=== PATIENT | male | born 1985 | race Caucasian/White ===

== ENCOUNTER 2020-02-23 09:19 | Outpatient (CLI) | payer OTHER, SELFPAY ==
[2020-02-24 18:04] LABS: SARS-CoV-2 RNA PCR Negative
== END 2020-02-23 09:20 | disposition home or self-care (01) ==
PROVIDERS: PCP Family Medicine; Visit Provider Family Medicine
DX: J00 Acute nasopharyngitis [common cold] (principal); Z20.828 Contact with and (suspected) exposure to other viral communicable diseases
CPT/HCPCS: 87635; C9803; U0003

== ENCOUNTER 2021-02-14 07:21 | Outpatient (CLI) | payer OTHER, SELFPAY ==
--- NOTE | ~2021-02-14 | CT_ITS ---
EXAMINATION: CT abdomen pelvis w con DATE: 02/14/2021 08:14 INDICATION: Diarrhea. TECHNIQUE: Computed tomography (CT) of the abdomen and pelvis was performed with 100 mL Omnipaque 350 intravenous contrast. Automated exposure control and iterative reconstruction technique were employe d. The dose-length product was 1049.44 mGy-cm. COMPARISON: CT abdomen and pelvis 07/12/2010 FINDINGS: The visualized portions of the lung bases are clear without pneumonia or pleural effusion. The heart size is normal. No pericardial effusion. The liver, gallbladder, spleen, pancreas, adrenal glands, and kidneys are normal. The prostate is mildly enlarged. There are no dilated loops of bowel. The terminal ileum is normal. The appendix is normal. There are no pathologically enlarged lymph nod es. There is no free intraperitoneal fluid. There is mild thoracolumbar spondylosis. IMPRESSION: 1. No etiology for the patient's symptoms. Reviewed, dictated and finalized at location A.
== END 2021-02-14 07:22 | disposition home or self-care (01) ==
LOC: CHSIMG 07:24
PROVIDERS: PCP Family Medicine; Visit Provider Family Medicine
DX: R19.7 Diarrhea, unspecified (principal); R19.5 Other fecal abnormalities
CPT/HCPCS: 74177; Q9967

== ENCOUNTER 2021-04-07 01:19 | Day surgery (SDC) | payer OTHER, SELFPAY ==
[2021-04-03 10:21] VITALS: BMI 38.4
[2021-04-07 12:42] VITALS: BP 146/98; PULSE 88; RESP 18; TEMP 36.9; O2SAT 99; BMI 36.3
--- NOTE | 2021-04-07 12:50 | WPDANESEPPF ---
Anes - Initial Pre Proc Eval Procedure: Operation Date: 04/07/21 14:00 Proposed Procedures p Colonoscopy - Henrique Nathan MD Date/Time: 04/07/21 12:50 Surgeon: Henrique Nathan MD Pre Op Diagnosis: positive hemoccult Patient Data Age: 36 Gender: M Height: 1.75 m Weight: 118 kg Allergies Allergy/AdvReac Type Severity Reaction Status Date / Time latex Allergy Unknown BLISTERS Verified 04/07/21 12:48 Penicillins Allergy Unknown DOES NOT Verified 04/07/21 12:48 KNOW REACTION, WAS A CHILD Home Medications Medication Instructions Recorded Confirmed Type No Home Medications 04/02/21 04/07/21 History Patient hx anesthesia problems: none Family hx anesthesia problems: none Results Review: All pre-operative results and documents have been reviewed as part of the pre-operative evaluation. [facility] Social History Social History Smoking status: Never smoker Substance use type: does not use Living arrangements: with family Anes - Eval Final PreProcedure Day of Procedure 04/07/21 12:50 Patient weight: obese Heart: regular rate and rhythm Lungs: clear to auscultation and normal air movement Airway: Mallampati scale class II Neurological: alert and oriented Last oral intake: >/= 8 hours ASA classification: II Emergent: no Anesthetic plan: proceed Anesthesia type and monitoring: general GIVS and standard monitoring Results Review: All pre-operative results and documents have been reviewed as part of the pre-operative evaluation. Informed Consent: The patient's anesthetic plan and its attendant risks and benefits were discussed with the patient/family/POA. Questions were solicited and answers provided to the satisfaction of the patient/family/POA.
[2021-04-07] MEDS: LACTATED RINGERS 1,000 ML 150 ML IV CONT (12:57)
--- NOTE | 2021-04-07 13:15 | WPDHPUPDATE1 ---
History and Physical Update Update Date/Time: 04/07/21 13:15 History and Physical has been reviewed, including an updated exam of the patient. There are NO changes in the patient's condition. Risks, benefits, and alternatives have been discussed and questions answered. Patient agrees to proceed with procedure.
[2021-04-07 13:39] VITALS: BP 139/85; PULSE 85; RESP 20; O2SAT 97
[2021-04-07 13:43] VITALS: BP 133/88; PULSE 79; RESP 17; O2SAT 97
[2021-04-07 13:53] VITALS: BP 129/90; PULSE 78; RESP 21; O2SAT 98
== END 2021-04-07 14:01 | disposition home or self-care (01) ==
PROVIDERS: PCP Family Medicine; Visit Provider Internal Medicine Gastroenterology
PROC: 0DJD8ZZ Inspection of Lower Intestinal Tract, Via Natural or Artificial Opening Endoscopic (ICD-10-PCS; CPT 45378; principal; 2021-04-07 14:00)
DX: R19.5 Other fecal abnormalities (principal); R19.7 Diarrhea, unspecified; K64.8 Other hemorrhoids
CPT/HCPCS: 45378; J2704; J7120

== ENCOUNTER 2022-03-19 11:05 | Outpatient (CLI) | payer OTHER, SELFPAY ==
[2022-03-19 12:02] LABS: SARS-CoV-2 RNA PCR Negative (Negative)
== END 2022-03-19 11:06 | disposition home or self-care (01) ==
LOC: CHSLAB 11:11
PROVIDERS: PCP Family Medicine; Visit Provider Family Medicine
DX: J06.9 Acute upper respiratory infection, unspecified (principal); Z20.822 Contact with and (suspected) exposure to COVID-19
CPT/HCPCS: U0003; U0005

== ENCOUNTER 2025-01-01 07:41 | Outpatient (CLI) | payer OTHER, SELFPAY ==
--- NOTE | ~2025-01-01 | XR_ITS ---
Clinical history:Pain EXAM:X-ray AC joint bilateral TECHNIQUE:2 images were obtained. Comparisons: FINDINGS: Left AC separation. Bone mineralization is within normal limits. No right AC separation. No fracture identified. IMPRESSION: 1. Left AC separation. 2. No right AC separation. Reviewed, dictated and finalized at location Q.
--- OUTSIDE RECORDS SUMMARY | 2025-01-01 08:02 | XMS_ITS | Clinical Summary ---
Author Organization [facility] Address [address] [place] [id number] Care Team Providers Care Spanish Speaking Nanny Name Role Phone Eber Underwood MD Primary Care Provider [phone] Encounters Date Type Department Care Team Description 12/25/2024 11:28 AM CDT - 12/25/2024 11:59 PM CDT Hospital Encounter [facility] [address] [place] [address] Eber Underwood MD Discharge Disposition: Home or Self Care (Routine Discharge) 12/25/2024 Travel from Last 3 Months Social History Tobacco Use Types Packs/Day Years Used Date Smoking Tobacco: Never Assessed Sex and Gender Information Value Date Recorded Sex Assigned at Male 12/25/2024 11:19 AM CDT Legal Sex Male 7:10 PM CDT Gender Identity Not on file Sexual Orientation Not on file Plan of Treatment Health Maintenance Due Date Last Done Comments Annual Physical 1989 Hepatitis C 01/12/2004 HPV Vaccines (1 - 3-dose SCDM series) 2013 DTaP, Tdap and Td Vaccines (6 - Td or Tdap) 04/30/2019 04/30/2009, 02/24/1990, 04/21/1988, Additional history exists COVID-19 Vaccine ( season) 2024 12/31/2020, 12/10/2020, 09/26/2020 Hepatitis B Vaccines Completed 05/04/1997, 11/21/1996, 10/17/1996 Meningococcal B Vaccine Aged Out No l onger eligible based on patient's age to complete this topic Meningococcal Vaccine Aged Out No genesis daisha eligible based on patient's age to complete this topic Pneumococcal Vaccine: Pediatrics (0 to 5 Years) and At-Risk Patients (6 to 49 Years) Aged Out No longer eligible based on patient's age to complete this topic RSV Immunizations Under 20 Months Aged Out No longer eligible based on patient's age to complete this topic Procedures Procedure Name Priority Date/Time Associated Diagnosis Comments XR SHOULDER LT 3V Routine 12/25/2024 11: 41 AM CDT Pain in left shoulder from Last 3 Months Results * XR SHOULDER LT 3V (12/25/2024 11:41 AM CDT) Anatomical Region Laterality Modality Shoulder Radiographic Celestina ging 12/25/2024 11:5 7 AM CDT Impressions 12/25/2024 11:59 AM CDT IMPRESSION: Grade 1 AC joint separation. No fracture. Ordered By: EBER UNDERWOOD Interpreted By: Josafat Munoz MD, 12/25/2024 11:57 AM Narrative 12/25/2024 11:59 AM CDT [address] [place] [address] Examination: Left shoulder. Exam time: 1113 hours. Clinical history: Pain and diminished range of motion after a fall. Comparison: None. Technique: Three views. Findings: No fracture, dislocation or other acute bony abnormality is identified. There is widening of the AC joint compatible with grade 1 separation. No other significant bone or joint abnormality is noted. The soft tissues are unremarkable. Procedure Note Josafat Munoz MD - 12/25/[address] [place] [address] Examination: Left shoulder. Exam time: 1113 hours. Clinical history: Pain and diminished range of motion after a fall. Comparison: None. Technique: Three views. Findings: No fracture, dislocation or other acute bony abnormality isidentified. There is widening of the AC joint compatible with grade 1separation. No other significant bone or joint abnormality is noted. Thesoft tissues are unremarkable. IMPRESSION: Grade 1 AC joint separation. No fracture. Ordered By: EBER UNDERWOOD Interpreted By: Josafat Munoz MD, 12/25/2024 11:57 AM Eber Underwood MD GENERAL IMAGING Final Result from Last 3 Months Insurance [employer] Care Teams Spanish Speaking Nanny Relationship Specialty Start Date End Date Eber Underwood MD [address], [place] [id number] PCP - General FAMILY PRACTICE 12/25/24
== END 2025-01-01 07:42 | disposition home or self-care (01) ==
LOC: CHSLAB 07:45
PROVIDERS: PCP Family Medicine; Visit Provider Orthopaedic Surgery
DX: S43.102A Unspecified dislocation of left acromioclavicular joint, initial encounter (principal); M25.511 Pain in right shoulder
CPT/HCPCS: 73050